=== PATIENT | female | born 2000 | race Caucasian/White ===

== ENCOUNTER 2021-08-09 13:11 | Emergency (ER) | payer OTHER ==
[2021-08-09 14:58] LABS: RED BLOOD COUNT 4.54 M/UL (4.00-5.10); WHITE BLOOD COUNT 10.5 K/UL (4.5-11.0)
[2021-08-09 15:25] LABS: BUN/CREATININE RATIO 8 (0-10)
[2021-08-11 07:12] LABS: RPR Non Reactive (Non Reactive)
[2021-08-11 22:08] LABS: CHLAMYDIA TRACHOMATIS, NAA Negative (Negative); NEISSERIA GONORRHOEAE, NAA Negative (Negative)
== END 2021-08-09 17:51 | disposition home or self-care (01) ==
LOC: ER1 13:11
PROVIDERS: Nurse Practitioner
DX: O99.891 Other specified diseases and conditions complicating pregnancy (principal); N89.8 Other specified noninflammatory disorders of vagina; Z88.0 Allergy status to penicillin; Z3A.01 Less than 8 weeks gestation of pregnancy
CPT/HCPCS: 76805; 80053; 81001; 84702; 85025; 86592; 86694; 86900; 86901; 87086; 99284

== ENCOUNTER 2021-12-03 14:30 | Emergency (ER) | payer OTHER ==
[2021-12-03 16:23] LABS: HEMOGLOBIN 11.8 gm/dl (12.3-15.3); RED BLOOD COUNT 4.55 M/UL (4.00-5.10); WHITE BLOOD COUNT 7.7 K/UL (4.5-11.0)
[2021-12-03 16:43] LABS: BUN/CREATININE RATIO 9 (0-10)
[2021-12-03] MEDS ORDERED: CEPHALEXIN500 M1 PO (20:10)
== END 2021-12-03 20:56 | disposition home or self-care (01) ==
LOC: ER1 14:30
PROVIDERS: Physician Assistant Medical
DX: O98.513 Other viral diseases complicating pregnancy, third trimester (principal); U07.1 COVID-19; O23.43 Unspecified infection of urinary tract in pregnancy, third trimester; N39.0 Urinary tract infection, site not specified; O99.283 Endocrine, nutritional and metabolic diseases complicating pregnancy, third trimester; E86.0 Dehydration; Z3A.31 31 weeks gestation of pregnancy; Z88.0 Allergy status to penicillin
CPT/HCPCS: 80053; 81001; 82550; 82553; 83605; 84484; 85025; 93005; 99284; U0002